=== PATIENT | male | born 1970 | race Caucasian/White ===

== ENCOUNTER → 2017-11-07 | Outpatient (CLI) | payer BC ==
--- NOTE | 2017-11-07 15:22 | RADIOLOGY REPORT (SQ) ---
EXAM DESCRIPTION: U/S EXTREMITY NONVASCULAR COMP COMPLETED DATE/TIME: 11/07/2017 2:01 pm REASON FOR STUDY: ACHILLES TENINITIS,RIGHT AND LEFT LEG M76.61 ACHILLES TENDINITIS, RIGHT LEG M76.6 2 ACHILLES TENDINITIS, LEFT LEG COMPARISON: None. TECHNIQUE: Ultrasound was performed of the right and left Achilles tendon. Grayscale, and cine loop images are submitted. LIMITATIONS: None. FINDINGS: Bilateral Achilles tendons were evaluated. The right and left musculotendinous junctions are normal. Along the mid 3rd right and mid 3rd left Achilles tendon, there is focal thickening of the tendon wit h decreased echogenicity from chronic tendinopathy. This is symmetric. Distal attachment of the Achilles tendons are normal. No fluid in the retrocalcaneal bursa on the ri ght or left side IMPRESSION: Right and left Achilles tendinopathy, with thickening and decreased echogenicity mid 3rd right and mid 3rd left Achilles tendons. TECHNICAL DOCUMENTATION: JOB ID: [id number] [employer]- All Rights Reserved Reading location - IP/workstation name: [facility]
== END ==
LOC: RAD 13:27
PROVIDERS: ATTEND Family Medicine
DX: M76.61 Achilles tendinitis, right leg (principal); M76.62 Achilles tendinitis, left leg
CPT/HCPCS: 76881